=== PATIENT | female | born 1955 | race African-American/Black ===

== ENCOUNTER 2017-03-23 16:10 | Emergency (ER) | payer MEDICAID ==
[~2017-03-23] VITALS: Ht 167.6 cm; Wt 115.7 kg
[2017-03-23 17:18] LABS: Basophils # (auto) 0 uL; Basophils % (auto) 0.5 % (0.0-2.0); Eosinophils # (auto) 0 uL; Hematocrit 37.2 % (36.0-46.0); Hemoglobin 12.3 g/dL (12.2-16.2); Lymphocytes # (auto) 0.2 uL; Lymphocytes % (auto) 2.8 % (10.0-50.0); Mean Corpuscular Hemoglobin 29.5 pg (28.0-32.0); Mean Corpuscular Volume 89.3 fL (80.0-100.0); Mean Platelet Volume 8.4 fL (6.9-10.8); Monocytes # (auto) 0.5 uL; Monocytes % (auto) 6.2 % (0.0-12.0); Neutrophils # (auto) 7.5 uL; Neutrophils % (auto) 90.5 % (37.0-80.0); Nucleated Red Blood Cells % 0.1 %; Platelet Count (auto) 224 10^3/uL (140-450); Red Cell Distribution Width 15.5 % (11.8-14.3); White Blood Cell 8.3 10^3/uL (4.4-10.8)
[2017-03-23 17:44] LABS: Albumin 3.6 g/dL (3.4-5.0); BUN/Creatinine Ratio 15.5; Bilirubin, Total 0.6 mg/dL (0.2-1.0); Calcium 8.6 mg/dL (8.5-10.1); Potassium 3.3 mmol/L (3.5-5.1); Total Protein 7.6 g/dL (6.4-8.2)
[2017-03-23 17:46] LABS: B-Type Natriuretic Peptide 26.22 pg/mL (0-100)
[2017-03-23 17:49] LABS: Temperature: 22.1 C (20.0-25.0)
[2017-03-23] MEDS ORDERED: PANTOPRAZOLE 40 MG/10 ML VIAL IV STA (18:37)
[2017-03-23] MEDS ORDERED: SODIUM CHLORIDE 0.9% 500 ML IVB ONE (18:37)
[2017-03-23] MEDS ORDERED: MORPHINE SULF INJ 2 MG/ML SYRINGE 1ML IV PRN (18:45)
[2017-03-23] MEDS ORDERED: ONDANSETRON HCL 4 MG/2 ML VIAL IV ONE (18:45)
[2017-03-23 19:01] LABS: Amylase 35 U/L (25-115)
[2017-03-23] MEDS ORDERED: MORPHINE SULF INJ 2 MG/ML SYRINGE 1ML ONE (19:48)
[2017-03-23 21:00] VITALS: BP 136/92
== END 2017-03-23 21:15 | disposition home or self-care (01) ==
LOC: ER 16:16
DX: K29.70 Gastritis, unspecified, without bleeding (principal)
CPT/HCPCS: 36415; 71010; 76705; 80053; 82150; 83690; 83880; 84484; 85025; 93005; 94761; 96361; 96374; 96375; 99285; C9113; J2270; J2405

== ENCOUNTER 2017-06-20 02:51 | Emergency (ER) | payer MEDICAID ==
[~2017-06-20] VITALS: Ht 167.6 cm; Wt 108.9 kg
[2017-06-20] MEDS ORDERED: SODIUM CHLORIDE 0.9% 500 ML IVB ONE (04:39)
[2017-06-20] MEDS ORDERED: NALBUPHINE HCL 10 MG/1ml INJECTION IV ONE (04:45)
[2017-06-20] MEDS ORDERED: ONDANSETRON HCL 4 MG/2 ML VIAL IV ONE (04:45)
[2017-06-20] MEDS ORDERED: GASTROGRAFIN 30 ML SOL ONE (04:57)
[2017-06-20 05:34] LABS: Basophils # (auto) 0 uL; Basophils % (auto) 0.2 % (0.0-2.0); Eosinophils # (auto) 0 uL; Eosinophils % (auto) 0.3 % (0.0-7.0); Hematocrit 34.1 % (36.0-46.0); Hemoglobin 11.2 g/dL (12.2-16.2); Lymphocytes # (auto) 1.4 uL; Lymphocytes % (auto) 21.4 % (10.0-50.0); Mean Corpuscular Hemoglobin 29.3 pg (28.0-32.0); Mean Corpuscular Hgb Conc. 32.7 g/dL (32.0-36.0); Mean Corpuscular Volume 89.4 fL (80.0-100.0); Monocytes # (auto) 0.4 uL; Monocytes % (auto) 6.5 % (0.0-12.0); Neutrophils # (auto) 4.7 uL; Neutrophils % (auto) 71.6 % (37.0-80.0); Nucleated Red Blood Cells % 0.1 %; Platelet Count (auto) 271 10^3/uL (140-450); Red Blood Cells 3.81 10^6/uL (4.0-5.20); Red Cell Distribution Width 14.8 % (11.8-14.3); White Blood Cell 6.6 10^3/uL (4.4-10.8)
[2017-06-20 05:49] LABS: INR 0.98 (0.9-1.15); Partial Thromboplastin Time 27.4 sec (22.64-33.71); Prothrombin Time 10.7 sec (9.37-12.3)
[2017-06-20 06:03] LABS: Alanine Aminotransferase 50 U/L (13-56); Albumin 3.3 g/dL (3.4-5.0); Alkaline Phosphatase 82 U/L (45-117); Amylase 47 U/L (25-115); Anion Gap 11 (5-15); Aspartate Aminotransferase 138 U/L (15-37); BUN/Creatinine Ratio 15.9; Bilirubin, Total 1.1 mg/dL (0.2-1.0); Blood Urea Nitrogen 10 mg/dL (7-18); Calcium 8.5 mg/dL (8.5-10.1); Carbon Dioxide 23 mmol/L (21-32); Chloride 110 mmol/L (98-107); GFR African American 124 mL/min; GFR Non-African American 102 mL/min; Glucose 100 mg/dL (74-106); Lipase 192 U/L (73-393); Magnesium 1.9 mg/dL (1.6-2.6); Potassium 3.2 mmol/L (3.5-5.1); Sodium 144 mmol/L (136-145); Total Protein 7.2 g/dL (6.4-8.2)
[2017-06-20] MEDS ORDERED: SODIUM CHLORIDE 0.9% 1,000 ML IV ONE (06:40)
[2017-06-20] MEDS ORDERED: LIDOCAINE VISCOUS 2% 15ML UD PO ONE (06:45)
[2017-06-20] MEDS ORDERED: ALUM & MAG HYDROX-SIMETH LIQ(MAALOX) 30 ML PO ONE (06:45)
[2017-06-20] MEDS ORDERED: FAMOTIDINE 20 MG TAB PO ONE (06:45)
[2017-06-20] MEDS ORDERED: DONNATAL 5ml ORAL Elix (BELLADONNA ALK-PHENOBARB) PO ONE (06:45)
[2017-06-20] MEDS ORDERED: POTASSIUM CHL 10% (20 MEQ/15ML) 15ml ORAL SOLN PO ONE (08:00)
[2017-06-20] MEDS ORDERED: ACETAMINOPHEN 325 MG TAB PO ONE (09:09)
[2017-06-20 10:14] LABS: Urine Bacteria NONE SEEN /hpf (None Seen); Urine Blood Negative /uL (Negative); Urine Specific Gravity 1.014 (1.001-1.035); Urine WBC 1 /hpf (0 - 5)
[2017-06-20 11:54] VITALS: BP 116/62
== END 2017-06-20 11:56 | disposition home or self-care (01) ==
LOC: EDBD 02:51 → ER 02:53
DX: K80.20 Calculus of gallbladder without cholecystitis without obstruction (principal); K44.9 Diaphragmatic hernia without obstruction or gangrene; E46 Unspecified protein-calorie malnutrition
CPT/HCPCS: 36415; 71045; 74176; 76705; 80053; 81001; 82150; 83690; 83735; 83880; 84484; 85025; 85610; 85730; 93005; 94761; 96361; 96374; 96375; 99285; J2300; J2405; Q9963

== ENCOUNTER 2018-12-28 09:32 | Emergency (ER) | payer MEDICAID, OTHER ==
[~2018-12-28] VITALS: Ht 167.6 cm; Wt 108.9 kg
[2018-12-28 10:45] LABS: Urine Bacteria FEW /hpf (None Seen)
[2018-12-28 10:58] LABS: Urine Specific Gravity 1.005 (1.001-1.035)
[2018-12-28 10:59] LABS: Urine Blood Negative /uL (Negative)
[2018-12-28 11:05] LABS: Basophils # (auto) 0 uL; Eosinophils # (auto) 0 uL; Hemoglobin 13.3 g/dL (12.2-16.2); Lymphocytes # (auto) 0.2 uL; Lymphocytes % (auto) 2.5 % (10.0-50.0); Mean Corpuscular Hemoglobin 30.5 pg (28.0-32.0); Mean Corpuscular Hgb Conc. 33.2 g/dL (32.0-36.0); Mean Corpuscular Volume 91.7 fL (80.0-100.0); Monocytes # (auto) 0.1 uL; Monocytes % (auto) 1.2 % (0.0-12.0); Neutrophils # (auto) 6.9 uL; Neutrophils % (auto) 96.3 % (37.0-80.0); Nucleated Red Blood Cells % 0.1 %; Platelet Count (auto) 247 10^3/uL (140-450); Red Blood Cells 4.37 10^6/uL (4.0-5.20); Red Cell Distribution Width 14.3 % (11.8-14.3); White Blood Cell 7.1 10^3/uL (4.4-10.8)
[2018-12-28 11:10] LABS: Albumin 3.8 g/dL (3.4-5.0); Calcium 8.8 mg/dL (8.5-10.1); Potassium 3.3 mmol/L (3.5-5.1)
[2018-12-28 11:12] LABS: BUN/Creatinine Ratio 10.2
[2018-12-28 11:15] LABS: Bilirubin, Total 2.3 mg/dL (0.2-1.0); Total Protein 8.1 g/dL (6.4-8.2)
[2018-12-28] MEDS ORDERED: SODIUM CHLORIDE 0.9% 1,000 ML IV ONE (11:54)
[2018-12-28] MEDS ORDERED: HYDROmorphone HCL 2 MG/ML VL IV ONE (12:00)
[2018-12-28] MEDS ORDERED: PROMETHAZINE HCL 25 MG/ML 1ML IV PRN (12:00)
[2018-12-28] MEDS ORDERED: IOHEXOL 300 MG/ML 100ML BOTTLE IJ ONE (12:01)
[2018-12-28 12:34] LABS: Lipase 125 U/L (73-393); Magnesium 1.9 mg/dL (1.6-2.6)
[2018-12-28] MEDS ORDERED: POTASSIUM EFFERVESENT TAB 25 MEQ PO ONE (15:30)
[2018-12-28] MEDS ORDERED: cefTRIAXone 1GM/50ML D5W 50 ML IV ONE (15:30)
[2018-12-28] MEDS ORDERED: KETOROLAC TROMETH 30 MG/ML 1ML VIAL IV ONE (21:00)
[2018-12-28 21:07] VITALS: BP 123/49
== END 2018-12-28 21:11 | disposition short-term general hospital (02) ==
LOC: ER 09:32 → EDBD 09:32 → ER 21:11
DX: K81.9 Cholecystitis, unspecified (principal); K42.9 Umbilical hernia without obstruction or gangrene; R94.5 Abnormal results of liver function studies; M19.90 Unspecified osteoarthritis, unspecified site
CPT/HCPCS: 36415; 71046; 74177; 80053; 81001; 83036; 83690; 83735; 84443; 84484; 85025; 93005; 96365; 96375; 99285; J0696; J1170; J1885; J2550; J7030; Q9967